=== PATIENT | female | born 1985 | race Caucasian/White ===

== ENCOUNTER 2020-05-01 13:31 | Emergency (ER) | payer OTHER, SELFPAY ==
[2020-05-01 13:40] VITALS: BP 135/92; PULSE 111; RESP 18; TEMP 36.8; O2SAT 97; BMI 34.1
--- NOTE | 2020-05-01 14:05 | ED_ITS ---
HPI - General Adult General: Chief complaint: Needlestick/Injury/Exposure Stated complaint: exposure/wc Time Seen by Provider: 05/01/20 13:55 Source: patient Mode of arrival: ambulatory Limitations: no limitations History of Present Illness: HPI narrative: Patient is a 35-year-old female who presents to ED today for evaluation after a blood exposure while at work. 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 Patient states she immediately irrigated both eyes copiously. She is not having any visual changes or eye pain. 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 Patient has completed her hepatitis B vaccination series. She is up-to-date on tetanus. She does not want to initiate PEP for HIV at this time. Onset (ago): minute(s) Location: eyes Associated symptoms: Reports no associated symptoms Review of Systems Eyes: Denies: change in vision, blurry vision, blind spots, photophobia, eye discomfort, eye discharge, eye redness, increased production of tears, floaters or seeing flashes Physical Exam Const: COMMON NORMALS: no acute distress, patient oriented x3, no limitations and alert Eye: COMMON NORMALS: Equal, round and reactive pupils present, EOMs intact bilaterally, conjunctivae normal and no scleral icterus GENERAL EYE: appearance normal, both eyes and all related structures VISUAL ACUITY: Yes acuity normal VISUAL FITZGERALD: No peripheral vision loss PERIORBITAL: periorbital findings normal EYELID: eyelids normal CONJUNCTIVA: Yes conjunctivae normal SCLERA: sclerae normal CORNEA: Yes corneas normal PUPIL: Yes Equal, round and reactive pupils present Neuro: COMMON NORMALS: patient oriented x3 SENSORIUM/ORIENTATION: Yes alert Course Vital Signs: Vital signs: Vital Signs Temperature 98.2 F 05/01/20 13:40 Pulse Rate 111 H 05/01/20 13:40 Respiratory Rate 18 05/01/20 13:40 Blood Pressure 135/92 05/01/20 13:40 Pulse Oximetry 97 05/01/20 13:40 MDM - General Adult MDM Narrative: Medical decision making narrative: Patient will have employee exposure labs drawn here. She will followup with Worker's Comp as directed. She does not wish to start PEP. 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 Discharge Plan Discharge Patient Disposition: Home, Self-Care Clinical Impression: Exposure to blood Condition: Stable Discharge Orders: Discharge Order (Routine); Ordered 05/01/20 Ordered By: Erica Raines Referrals: Rolando Miller MD [Primary Care Provider] - Patient Instructions: Blood/Body Fluid Exposure - Occupational Activity Restrictions/Additional Instructions: As discussed please follow-up with Worker's Comp as directed. production supervisor off shift should be working on obtaining source patient blood. You should be contacted if any of the source patient's blood comes back abnormal/positive. Coding Level of Care Code ED Marketing Information Analyst for Chg Fwd Exam Expanded Problem Focused
[2020-05-01 14:45] VITALS: RESP 18
[2020-05-01 14:54] LABS: Hepatitis C Virus Antibody Non-Reactive (Nonreactive)
[2020-05-01 14:58] LABS: Hepatitis B Surface AB 5.7 (0-8.5)
[2020-05-01 17:22] LABS: HIV 1 & 2 Antibody Non-Reactive (Non-Reactiv); HIV 1 & 2 Antigen Non-Reactive (Non-Reactiv)
[2020-05-01 22:55] LABS: Hepatitis B Surface Antigen Non-Reactive (Nonreactive)
== END 2020-05-01 14:49 | disposition home or self-care (01) ==
PROVIDERS: Emergency Provider Physician Assistant; PCP Family Medicine
DX: Z77.21 Contact with and (suspected) exposure to potentially hazardous body fluids (principal)
CPT/HCPCS: 12345; 36415; 86706; 86803; 87340; 87806; 99281; 99282

== ENCOUNTER 2021-11-20 13:41 | Outpatient (CLI) | payer OTHER, SELFPAY ==
[2021-11-20 14:28] LABS: Anion Gap 18.2 (5-19); Blood Urea Nitrogen 13 mg/dL (6-20); Carbon Dioxide 23 mmol/L (22-29); Chloride 97 mmol/L (98-107); Glomerular Filtration Rate 138.1 mL/min (90-130); Glucose 187 mg/dL (65-115); Osmolality Calculated 283 mOsm/kg (285-295); Potassium 4.2 mmol/L (3.5-5.1); Sodium 134 mmol/L (136-145)
== END 2021-11-20 13:42 | disposition home or self-care (01) ==
LOC: LAB 13:46
PROVIDERS: Visit Provider Internal Medicine
DX: L98.8 Other specified disorders of the skin and subcutaneous tissue (principal)
CPT/HCPCS: 36415; 80048

== ENCOUNTER 2022-03-28 06:08 | Outpatient (CLI) | payer OTHER, SELFPAY ==
[2022-03-28 07:04] LABS: Alanine Aminotransferase 30 U/L (0-33); Albumin Level 4.3 g/dL (3.5-5.2); Alkaline Phosphatase 53 IU/L (35-105); Aspartate Amino Transferase 23 U/L (0-32); Blood Urea Nitrogen 12 mg/dL (6-20); Calcium 8.6 mg/dL (8.5-10.5); Carbon Dioxide 23 mmol/L (22-29); Chloride 103 mmol/L (98-107); Chol HDL Ratio 2.37 mg/dL (0.0-4.40); Cholesterol 147 mg/dL (0-200); Globulin 2.6 g/dL (1.3-4.6); Glomerular Filtration Rate 111.3 mL/min (90-130); Glucose 190 mg/dL (65-115); HDL Cholesterol 62 mg/dL (60-100); LDL Cholesterol Calculated 48 mg/dL (50-129); LDL HDL Ratio 0.77 RATIO (0.00-3.22); Osmolality Calculated 291 mOsm/kg (285-295); Sodium 138 mmol/L (136-145); Total Bilirubin 0.4 mg/dL (0.15-1.2); Total Protein 6.9 g/dL (6.6-8.7); Triglycerides 186 mg/dL (0-150)
[2022-03-28 07:06] LABS: Estmated Average Glucose 169; Hemoglobin A1C 7.5 % (4.0-6.0)
[2022-03-28 07:08] LABS: Anion Gap 16.2 (5-19); Potassium 4.2 mmol/L (3.5-5.1)
== END 2022-03-28 06:09 | disposition home or self-care (01) ==
PROVIDERS: Visit Provider Internal Medicine
DX: E11.65 Type 2 diabetes mellitus with hyperglycemia (principal)
CPT/HCPCS: 36415; 80053; 80061; 83036

== ENCOUNTER 2022-06-27 06:13 | Outpatient (CLI) | payer OTHER, SELFPAY ==
[2022-06-27 07:36] LABS: Estmated Average Glucose 157; Hemoglobin A1C 7.1 % (4.0-6.0)
== END 2022-06-27 06:14 | disposition home or self-care (01) ==
LOC: LAB 06:18
PROVIDERS: Visit Provider Internal Medicine
DX: E11.65 Type 2 diabetes mellitus with hyperglycemia (principal)
CPT/HCPCS: 36415; 83036

== ENCOUNTER 2022-11-21 06:19 | Outpatient (CLI) | payer OTHER, SELFPAY ==
[2022-11-21 07:23] LABS: Estmated Average Glucose 157; Hemoglobin A1C 7.1 % (4.0-6.0)
== END 2022-11-21 06:20 | disposition home or self-care (01) ==
PROVIDERS: PCP Family Medicine; Visit Provider Internal Medicine
DX: E11.65 Type 2 diabetes mellitus with hyperglycemia (principal); E78.2 Mixed hyperlipidemia
CPT/HCPCS: 36415; 83036

== ENCOUNTER 2022-12-12 06:13 | Outpatient (CLI) | payer OTHER, SELFPAY ==
[2022-12-12 06:49] LABS: Add Urine Microscopic? NO; Charge for UA Resulting for Rev
[2022-12-12 06:55] LABS: Bilirubin Urine Neg (Negative); Blood Urine Neg (Negative); Glucose Urine UA 4+ (Normal); Ketones Urine 1+ (Negative); Leukocyte Esterase Urine Negative (Negative); Nitrate Urine Negative (Negative); Protein Urine Neg (Negative); Urine Appearance Clear (CLEAR); Urine Color Yellow (Yellow); Urobilinogen Urine Neg (Negative); pH Urine 6 (5-7)
== END 2022-12-12 06:14 | disposition home or self-care (01) ==
PROVIDERS: PCP Family Medicine; Visit Provider Internal Medicine
DX: N39.0 Urinary tract infection, site not specified (principal)
CPT/HCPCS: 81003

== ENCOUNTER 2023-05-21 06:20 | Outpatient (CLI) | payer OTHER, SELFPAY ==
[2023-05-21 08:15] LABS: Estmated Average Glucose 237; Hemoglobin A1C 9.9 % (4.0-6.0)
== END 2023-05-21 06:21 | disposition home or self-care (01) ==
PROVIDERS: PCP Family Medicine; Visit Provider Internal Medicine
DX: E11.65 Type 2 diabetes mellitus with hyperglycemia (principal)
CPT/HCPCS: 83036

== ENCOUNTER 2023-08-06 05:59 | Outpatient (CLI) | payer OTHER, SELFPAY ==
[2023-08-06 06:57] LABS: Estmated Average Glucose 214; Hemoglobin A1C 9.1 % (4.0-6.0)
== END 2023-08-06 06:00 | disposition home or self-care (01) ==
LOC: LAB 06:01
PROVIDERS: PCP Family Medicine; Visit Provider Internal Medicine
DX: E11.65 Type 2 diabetes mellitus with hyperglycemia (principal); E66.9 Obesity, unspecified; E28.2 Polycystic ovarian syndrome; E78.2 Mixed hyperlipidemia
CPT/HCPCS: 83036

== ENCOUNTER 2023-11-27 06:01 | Outpatient (CLI) | payer OTHER, SELFPAY ==
[2023-11-27 07:25] LABS: Alanine Aminotransferase 42 U/L (0-33); Albumin Level 4.3 g/dL (3.5-5.2); Alkaline Phosphatase 67 U/L (35-105); Anion Gap 16.2 (5-19); Aspartate Amino Transferase 33 U/L (0-32); Blood Urea Nitrogen 17 mg/dL (6-20); Calcium 9.5 mg/dL (8.5-10.5); Carbon Dioxide 23 mmol/L (22-29); Chloride 102 mmol/L (98-107); Chol HDL Ratio 3.27 mg/dL (0.0-4.40); Cholesterol 196 mg/dL (0-200); Globulin 2.7 g/dL (1.3-4.6); Glomerular Filtration Rate 136.6 mL/min (90-130); Glucose 171 mg/dL (65-115); HDL Cholesterol 60 mg/dL (60-100); LDL Cholesterol Calculated 94 mg/dL (50-129); LDL HDL Ratio 1.57 RATIO (0.00-3.22); Osmolality Calculated 290 mOsm/kg (285-295); Potassium 4.2 mmol/L (3.5-5.1); Sodium 137 mmol/L (136-145); Total Bilirubin 0.2 mg/dL (0.15-1.2); Triglycerides 211 mg/dL (0-150)
[2023-11-27 07:27] LABS: Estmated Average Glucose 163; Hemoglobin A1C 7.3 % (4.0-6.0)
[2023-11-27 08:23] LABS: Creatinine Urine, Random 65 mg/dL (28-217); Microalbum Creatinine Ratio Ur 15 mg/dL (0-20); Microalbumin Random Urine 1 ug/dL (0-20)
== END 2023-11-27 06:02 | disposition home or self-care (01) ==
LOC: LAB 06:01
PROVIDERS: PCP Family Medicine; Visit Provider Internal Medicine
DX: E11.65 Type 2 diabetes mellitus with hyperglycemia (principal)
CPT/HCPCS: 36415; 80053; 80061; 82044; 83036

== ENCOUNTER → 2024-01-28 07:57 | Outpatient (BNVA) | payer OTHER, SELFPAY | PROVIDERS: PCP Family Medicine; Visit Provider Nurse Practitioner Women's Health | DX: Z34.90 Encounter for supervision of normal pregnancy, unspecified, unspecified trimester (principal) | CPT/HCPCS: 81025; 86850; 86900 ==

== ENCOUNTER → 2024-02-04 13:16 | Outpatient (BNVA) | payer OTHER, SELFPAY | PROVIDERS: PCP Family Medicine; Visit Provider Nurse Practitioner Women's Health | DX: Z34.90 Encounter for supervision of normal pregnancy, unspecified, unspecified trimester (principal) | CPT/HCPCS: 76801; 80307; 84315; 85025; 86592; 86762; 86803; 86850; 86900; 87086; 87340; 87491; 87591; 87806 ==

== ENCOUNTER → 2024-02-09 07:52 | Outpatient (BNVA) | payer OTHER, SELFPAY | PROVIDERS: PCP Family Medicine; Visit Provider Obstetrics & Gynecology | DX: O09.899 Supervision of other high risk pregnancies, unspecified trimester (principal); O24.319 Unspecified pre-existing diabetes mellitus in pregnancy, unspecified trimester; Z67.91 Unspecified blood type, Rh negative; O34.219 Maternal care for unspecified type scar from previous cesarean delivery; O09.529 Supervision of elderly multigravida, unspecified trimester; E11.65 Type 2 diabetes mellitus with hyperglycemia; E66.9 Obesity, unspecified; F41.9 Anxiety disorder, unspecified; F32.A Depression, unspecified; Z30.09 Encounter for other general counseling and advice on contraception; Z3A.00 Weeks of gestation of pregnancy not specified | CPT/HCPCS: 83036; 84315 ==

== ENCOUNTER → 2024-02-20 08:36 | Outpatient (BNVA) | payer OTHER, SELFPAY | PROVIDERS: PCP Family Medicine; Visit Provider Obstetrics & Gynecology | DX: O09.899 Supervision of other high risk pregnancies, unspecified trimester (principal); Z3A.00 Weeks of gestation of pregnancy not specified | CPT/HCPCS: 84315; 87491; 87591 ==

== ENCOUNTER → 2024-05-10 12:19 | Outpatient (BNVA) | payer OTHER, SELFPAY | PROVIDERS: PCP Family Medicine; Visit Provider Nurse Practitioner Women's Health | DX: O36.5990 Maternal care for other known or suspected poor fetal growth, unspecified trimester, not applicable or unspecified (principal); Z3A.24 24 weeks gestation of pregnancy | CPT/HCPCS: 76805 ==

== ENCOUNTER → 2024-05-20 08:01 | Outpatient (BNVA) | payer OTHER, SELFPAY | PROVIDERS: PCP Family Medicine; Visit Provider Obstetrics & Gynecology | DX: O36.5990 Maternal care for other known or suspected poor fetal growth, unspecified trimester, not applicable or unspecified (principal); Z3A.24 24 weeks gestation of pregnancy | CPT/HCPCS: 76816; 76820 ==

== ENCOUNTER → 2024-05-27 09:21 | Outpatient (BNVA) | payer OTHER, SELFPAY | PROVIDERS: PCP Family Medicine; Visit Provider Obstetrics & Gynecology | DX: O36.5920 Maternal care for other known or suspected poor fetal growth, second trimester, not applicable or unspecified (principal); Z3A.27 27 weeks gestation of pregnancy | CPT/HCPCS: 76815; 76820; 84315 ==

== ENCOUNTER → 2024-06-17 12:33 | Outpatient (BNVA) | payer OTHER, SELFPAY | PROVIDERS: PCP Family Medicine; Visit Provider Obstetrics & Gynecology | DX: Z36.4 Encounter for antenatal screening for fetal growth retardation (principal); Z3A.29 29 weeks gestation of pregnancy | CPT/HCPCS: 76816; 76820 ==

== ENCOUNTER → 2024-06-24 12:33 | Outpatient (BNVA) | payer OTHER, SELFPAY | PROVIDERS: PCP Family Medicine; Visit Provider Obstetrics & Gynecology | DX: O36.5930 Maternal care for other known or suspected poor fetal growth, third trimester, not applicable or unspecified (principal); Z3A.31 31 weeks gestation of pregnancy | CPT/HCPCS: 76815; 76820; 84315 ==

== ENCOUNTER → 2024-07-01 12:23 | Outpatient (BNVA) | payer OTHER, SELFPAY | PROVIDERS: PCP Family Medicine; Visit Provider Obstetrics & Gynecology | DX: O36.5930 Maternal care for other known or suspected poor fetal growth, third trimester, not applicable or unspecified (principal); Z3A.31 31 weeks gestation of pregnancy | CPT/HCPCS: 76815; 76819; 76820 ==

== ENCOUNTER → 2024-07-08 12:46 | Outpatient (BNVA) | payer OTHER, SELFPAY | PROVIDERS: PCP Family Medicine; Visit Provider Obstetrics & Gynecology | DX: O36.5930 Maternal care for other known or suspected poor fetal growth, third trimester, not applicable or unspecified (principal); Z3A.33 33 weeks gestation of pregnancy | CPT/HCPCS: 76815; 76820; 84315; 86850 ==

== ENCOUNTER 2024-07-13 12:48 | Outpatient (CLI) | payer OTHER, SELFPAY ==
[2024-07-13 13:04] VITALS: BP 138/79; PULSE 108
[2024-07-13 13:37] VITALS: BMI 37.8
== END 2024-07-13 14:00 ==
LOC: OPOB 12:49 → OBGYN 12:54
PROVIDERS: PCP Family Medicine; Visit Provider Obstetrics & Gynecology
DX: O24.419 Gestational diabetes mellitus in pregnancy, unspecified control (principal); Z3A.00 Weeks of gestation of pregnancy not specified
CPT/HCPCS: 59025

== ENCOUNTER → 2024-07-15 12:25 | Outpatient (BNVA) | payer OTHER, SELFPAY | PROVIDERS: PCP Family Medicine; Visit Provider Obstetrics & Gynecology | DX: Z36.4 Encounter for antenatal screening for fetal growth retardation (principal); Z3A.33 33 weeks gestation of pregnancy | CPT/HCPCS: 76815; 76820 ==

== ENCOUNTER 2024-07-21 12:47 | Outpatient (CLI) | payer OTHER, SELFPAY ==
[2024-07-21 12:45] VITALS: BMI 37.4
[2024-07-21 13:19] VITALS: BP 142/79; PULSE 111
[2024-07-21 13:20] VITALS: BP 142/79; PULSE 111
== END 2024-07-21 13:20 ==
LOC: OPOB 12:48 → OBGYN 12:48
PROVIDERS: PCP Family Medicine; Visit Provider Obstetrics & Gynecology
DX: O24.419 Gestational diabetes mellitus in pregnancy, unspecified control (principal); Z3A.00 Weeks of gestation of pregnancy not specified
CPT/HCPCS: 59025; 99211

== ENCOUNTER → 2024-07-22 12:54 | Outpatient (BNVA) | payer OTHER, SELFPAY | PROVIDERS: PCP Family Medicine; Visit Provider Nurse Practitioner Women's Health | DX: O36.5930 Maternal care for other known or suspected poor fetal growth, third trimester, not applicable or unspecified (principal); Z3A.35 35 weeks gestation of pregnancy | CPT/HCPCS: 76815; 76820 ==

== ENCOUNTER 2024-07-22 13:57 | Outpatient (CLI) | payer OTHER, SELFPAY ==
[2024-07-22 14:04] VITALS: BMI 37.3
[2024-07-22 14:14] VITALS: BP 136/84; PULSE 113
[2024-07-22 14:30] VITALS: BP 134/80; PULSE 118
[2024-07-22 14:55] VITALS: BP 133/84; PULSE 136
[2024-07-22 15:15] VITALS: BP 137/86; PULSE 111
[2024-07-22 15:35] VITALS: BP 124/81; PULSE 116
[2024-07-22 15:55] VITALS: BP 136/82; PULSE 106
[2024-07-22 19:05] LABS: Glucose Point of Care 64 mg/dL (70-110)
== END 2024-07-22 16:07 | disposition home or self-care (01) ==
LOC: OPOB 13:57 → OBGYN 13:58
PROVIDERS: PCP Family Medicine; Visit Provider Obstetrics & Gynecology
DX: O16.9 Unspecified maternal hypertension, unspecified trimester (principal); Z3A.00 Weeks of gestation of pregnancy not specified; R11.0 Nausea
CPT/HCPCS: 36416; 59025; 82962; 84315; 99211

== ENCOUNTER 2024-07-28 13:27 | Outpatient (CLI) | payer OTHER, SELFPAY ==
[2024-07-28 13:34] VITALS: BMI 38.1
[2024-07-28 13:38] VITALS: BP 136/82; PULSE 97
[2024-07-28 13:53] VITALS: BP 126/78; PULSE 95
[2024-07-28 14:01] VITALS: BP 126/78; PULSE 95
== END 2024-07-28 14:02 | disposition home or self-care (01) ==
LOC: OPOB 13:32 → OBGYN 13:33
PROVIDERS: PCP Family Medicine; Visit Provider Obstetrics & Gynecology
DX: O24.419 Gestational diabetes mellitus in pregnancy, unspecified control (principal); Z3A.00 Weeks of gestation of pregnancy not specified
CPT/HCPCS: 59025

== ENCOUNTER → 2024-07-29 13:00 | Outpatient (BNVA) | payer OTHER, SELFPAY | PROVIDERS: PCP Family Medicine; Visit Provider Obstetrics & Gynecology | DX: O36.5930 Maternal care for other known or suspected poor fetal growth, third trimester, not applicable or unspecified (principal); Z3A.35 35 weeks gestation of pregnancy | CPT/HCPCS: 76815; 76819 ==

== ENCOUNTER → 2024-08-05 12:38 | Outpatient (BNVA) | payer OTHER, SELFPAY | PROVIDERS: PCP Family Medicine; Visit Provider Obstetrics & Gynecology | DX: Z34.90 Encounter for supervision of normal pregnancy, unspecified, unspecified trimester (principal); Z98.890 Other specified postprocedural states; O36.5930 Maternal care for other known or suspected poor fetal growth, third trimester, not applicable or unspecified; Z3A.00 Weeks of gestation of pregnancy not specified | CPT/HCPCS: 76819; 76820; 84315; 87081 ==

== ENCOUNTER → 2024-08-12 12:37 | Outpatient (BNVA) | payer OTHER, SELFPAY | PROVIDERS: PCP Family Medicine; Visit Provider Obstetrics & Gynecology | DX: O36.5930 Maternal care for other known or suspected poor fetal growth, third trimester, not applicable or unspecified (principal); Z3A.36 36 weeks gestation of pregnancy | CPT/HCPCS: 76815; 76820 ==

== ENCOUNTER 2024-08-13 14:47 | Outpatient (CLI) | payer OTHER, SELFPAY ==
[2024-08-13 15:06] VITALS: BP 139/81; PULSE 107
[2024-08-13 15:13] VITALS: RESP 18; BMI 38.6
[2024-08-13 15:18] VITALS: BP 138/79; PULSE 96
[2024-08-13 15:33] VITALS: BP 127/74; PULSE 93
[2024-08-13 16:36] VITALS: BP 131/85; PULSE 95
== END 2024-08-13 15:48 | disposition home or self-care (01) ==
LOC: OPOB 14:51 → OBGYN 14:52
PROVIDERS: PCP Family Medicine; Visit Provider Obstetrics & Gynecology
DX: O24.419 Gestational diabetes mellitus in pregnancy, unspecified control (principal); Z3A.00 Weeks of gestation of pregnancy not specified; O09.519 Supervision of elderly primigravida, unspecified trimester
CPT/HCPCS: 59025

== ENCOUNTER 2024-08-17 05:06 | Inpatient (IN) | payer OTHER, SELFPAY ==
[2024-08-17] VITALS (28 sets, daily range): BP systolic 120–150; BP diastolic 60–95; PULSE 74–112; RESP 16–18; TEMP 36.3–36.9; O2SAT 99–100; BMI 37.9
[2024-08-17] MEDS: lactated ringers 1,000 ML 999 ML IV (05:50)
[2024-08-17 06:05] LABS: Basophils # 0.1 10^3/uL (0.0-0.1); Basophils % 0.5 %; Eosinophils # 0.2 10^3/uL (0.0-0.8); Hematocrit 40.5 % (36-47); Lymphocytes # 2.5 10^3/uL (0.8-4.8); Lymphocytes % 20.4 %; Mean Corpuscular HGB Conc 32.6 g/dL (30-55); Mean Corpuscular Hemoglobin 28.1 pg (27-33); Mean Corpuscular Volume 86.4 fl (85-98); Mean Platelet Volume 10.6 fL (7.4-10.4); Monocytes # 1.2 10^3/uL (0.2-0.9); Monocytes % 9.7 %; Neutrophils # 8.09 10^3/uL (1.8-7.7); Neutrophils % 66.5 %; Nucleated Red Blood Cells % 0 %; Platelet Count 250 10^3/cmm (157-399); Red Blood Count 4.69 10^6/uL (3.85-5.65); White Blood Count 12.16 10^3/uL (3.29-11.43)
[2024-08-17] MEDS: metoclopramide 5 mg/mL SDV 2 mL 10 MG IVP (06:51)
[2024-08-17] MEDS: famotidine 20 mg/2 mL INJ IVP (06:53)
[2024-08-17] MEDS: citric acid-sodium citrate 30 mL UDC PO (06:55)
--- NOTE | 2024-08-17 08:20 | P.ANESUD_ITS ---
Pre-Anesthetic Update Pre-Anesthetic Assessment: Date of Surgery/Procedure: 08/17/24 Preop Heide gnosis: Prior Proposed Procedure: Operation Date: 08/17/24 07:00 Proposed Procedures p Section Repeat With Tubal 06576, 59855, 43183, E11.65, Z30.2(Not Applicable) - Dain Tran MD Any changes to Pre-Anesthetic Assessment?: No Labs Last 48hrs: Short CBC 08/17/24 Range/Units 05:36 WBC 12.16 H (3.29-11.43) 10^ 3/uL Hgb 13.20 (11.27-16.99) g/ dL Hct 40.5 (36-47) % MCV 86.4 (85-98) fl Plt Count 250 (157-399) 10^3/c mm Neut % (Auto) 66.5 % Neut # (Auto) 8.09 H (1.8-7.7) 10^3/u L Blood Bank 08/17/24 05:36 Blood Type A Negative Rho(D) Type Rh negative Antibody Screen Positive Vitals: Pulse Rate 99 08/17/24 06:49 Respiratory Rate 17 08/17/24 05:43 Respiratory Effort Spontaneous, Non- Labored 08/17/24 05:19 Respiratory Depth Normal 08/17/24 05:19 Respiratory Patter n Normal 08/17/24 05:19 Blood Pressure 141/89 08/17/24 06:49 Oxygen Delivery Me thod Room Air 08/17/24 05:19 Exam: Pre-Anes Outpt Exam: alert, oriented x 3, clear to auscultation bilaterally and regular rate & rhythm Cardiac Studies: No Data to Display
[2024-08-17] MEDS: BUPIVACAINE LIPOSOME/PF 266 MG, BUPivacaine 0.25% 30 ML in sodium chloride 0.9% 50 ML 100 MG INFILTRATI (08:45)
--- NOTE | 2024-08-17 08:55 | W.PM.OPSUD ---
Surgery/Procedure H&P Update DATE OF PROCEDURE: August 17, 2024 DATE H&P PERFORMED: 08/05/24 H&P UPDATE INFORMATION: I have reviewed H&P completed within last 30 days, I have examined patient prior to procedure and No changes to prior documentation PREOP DIAGNOSIS: Prior PLANNED PROCEDURE: Operation Date: 08/17/24 07:00 Proposed Procedures p Section Repeat With Tubal 99485, 09390, 25347, E11.65, Z30.2(Not Applicable) - Dain Tran MD
--- NOTE | 2024-08-17 08:56 | PM.OP ---
Operative Report Date of procedure: August 17, 2024 Pre-op diagnosis: Term Previous delivery Pregestational diabetes Abnormal NIPT screening Desire permanent sterilization Post-op diagnosis: same Post-op findings: Multiple adhesions Uterus Procedure done: Repeat low-transverse delivery Lysis of adhesions Bilateral salpingectomy Specimens removed/disposition: Left the right fallopian tube Surgeon: Dain Tran MD Estimated blood loss (mL): 800 IV fluids (mL): 1,200 Urine output (mL): 200 Procedure: After assuring informed consent, the patient was taken to the operating room and anesthesia was initiated. She was placed in the dorsal supine position with a left lateral tilt. The abdomen was prepped and draped in the usual sterile manner. A time-out procedure was performed. Preop antibiotics was administered. A Pfannenstiel skin incision was made with the scalpel and carried through to the underlying layer of fascia with the Bovie. The fascia was nicked in the midline and the incision extended laterally with the Perez scissors. The superior aspect of the fascial incision was then grasped with Abby clamps and elevated and the underlying rectus muscle dissected off bluntly and sharp with perez scissors dense adhesions. Attention was then turned to the inferior aspect of the incision which, in similar fashion, was grasped and tented up with Abby clamps and the rectus muscle dissected bluntly. The rectus muscles were then in the midline and the peritoneum identified, tented up and entered sharply with Metzenbaum scissors. The peritoneal incision was then extended superiorly and inferiorly with good visualization of the bladder. The Tono O retractor was then inserted and the vesicouterine peritoneum identified, grasped with pickups and entered sharply with Metzenbaum scissors. This incision was then extended laterally and the bladder flap created digitally. The bladder blade was then reinserted and the uterus incised in a low transverse fashion with the scalpel. The uterine incision was then extended with the bandage scissors. The infant was then delivered in the cephalic presentation atraumatically vacuum assisted. The nose and the mouth were suctioned with bulb and the cord clamped and cut. The cord was normal and had three vessels. Amniotic fluid was clear. The placenta was then removed manually and the uterus exteriorized and cleared of all clots and debris. The uterine incision was repaired with 0 Vicryl in a running-locked fashion. A second layer of the same suture was used to obtain excellent hemostasis. The gutters were cleared of all clots. Attention was then directed to the right side. The fallopian tube and mesosalpinx were grasped and the underlying mesosalpinx was cauterized and cut using the fine Ligasure device. Serial cauterization and cutting was used to separate the fallopian tube from the underlying mesosalpinx until it could be amputated cutting it approximated 2 cm from the cornua. Attention was then turned to the contralateral fallopian tube, which was removed in similar fashion. Both specimens were removed and sent to pathology. The uterus was then returned to the abdomen. The rectus muscles were approximated with 3-0 chromic gut. The ON-Q pain management system placed. The fascia was reapproximated with 0 Vicryl in an interrupted running fashion. The skin was closed with Insorb?s subcuticular absorbable [place]. The patient tolerated the procedure well. The sponge, lap and needle counts were correct times three.
--- NOTE | 2024-08-17 09:20 | ANE.PACU2 ---
Inpatient post-anesthesia follow up: Airway intact: Yes Vital signs: Temperature 97.4 F Pulse Rate 85 Respiratory Rate 16 Blood Pressure 125/67 Pulse Oximetry 100 Oxygen Delivery Me thod Room Air Oxygen Flow Rate Fraction of Inspir ed Oxygen Hydration adequate: Yes Nausea and vomiting: No Pain level: 1 Mental status: Baseline
--- NOTE | 2024-08-17 12:31 | PC.NURSE ---
1220 PATIENT UP AND TO WHEELCHAIR AND INTO NURSERY TO SEE HER BABY. SHE DID GREAT GETTING UP.
--- NOTE | 2024-08-17 13:33 | PC.NURSE ---
MOM BACK INTO ROOM AND BABY FOLLOWING. BABY DID GREAT WITH SKIN TO SKIN.
[2024-08-17] MEDS: ketorolac 30 mg/mL INJ IVP ×2 (16:34→20:38)
--- NOTE | 2024-08-17 19:01 | PC.NURSE ---
183 PATIENT STILL HAD VISTORS BUT TOLD HER THAT I REALLY NEED HER TO GET UP AND WALK. SO VISTORS LEFT AND WE GOT UP AND CLEANED UP AND SHE DID 3 LAPS IN [place]VAREZ AND THIS SOFTWARE RELEASE MANAGER CHANGED HER BED WHILE SHE WAS UP. SHE TOLERATED BEING UP WELL. TOLD HER THAT WE COULD TAKE SANTOS OUT AT ANY TIME BUT FOR SURE IN AM. TOLD HER ALSO THAT SHE WOULD NEED RHOGAM AND THAT WE WOULD DRAW HER H&H AROUND 8 THIS EVENING.
[2024-08-17] MEDS: docusate sodium 100 mg Capsule PO (20:40)
[2024-08-17 20:54] LABS: Hematocrit 33.7 % (36-47); Mean Corpuscular HGB Conc 32.6 g/dL (30-55); Mean Corpuscular Hemoglobin 28.8 pg (27-33); Mean Corpuscular Volume 88.2 fl (85-98); Mean Platelet Volume 10.4 fL (7.4-10.4); Platelet Count 214 10^3/cmm (157-399); Red Blood Count 3.82 10^6/uL (3.85-5.65); Red Cell Distribution Width 14.1 % (12.1-15.1); White Blood Count 14.39 10^3/uL (3.29-11.43)
[2024-08-18] VITALS (7 sets, daily range): BP systolic 131–145; BP diastolic 73–81; PULSE 90–98; RESP 16; TEMP 36.2–36.9; O2SAT 98
[2024-08-18] MEDS: ketorolac 30 mg/mL INJ IVP (02:41)
[2024-08-18] MEDS: ibuprofen 800 mg tablet PO ×3 (10:21→20:37)
[2024-08-18] MEDS: docusate sodium 100 mg Capsule PO ×2 (10:21→18:44)
[2024-08-18] MEDS: PRENATAL VIT NO.130/IRON/FOLIC 1 EACH TABLET PO (10:22)
--- NOTE | 2024-08-18 14:11 | P.PN_ITS ---
Subjective 2 Subjective: Mrs. Man 39-year-old female status post repeat low-transverse delivery and bilateral salpingectomy postoperative day 1. Refers feeling fine no pain Vitals/I&O/Wt Last Vital Signs Temp 97.3 F L 08/18/24 12:09 Pulse 96 08/18/24 12:09 Resp 16 08/17/24 20:46 BP 145/74 08/18/24 12:09 Pulse Ox 98 08/18/24 10:39 O2 Del Method Room Air 08/17/24 09:20 08/17/24 08/18/24 08/18/24 22:59 06:59 14:59 Intake Total 600 / 1800 1101 / 1101 Output Total 1300 / 2500 350 / 2850 Balance -700 / -700 -350 / -1050 1101 / 1101 Weight last 48 hrs Weight 103.419 kg Physical Exam 2 Narrative: GA; alert and oriented x 3 HEENT: normal Breasts: engorged Nipples - skin intact Lungs; clear to auscultation Heart: regular rhythm, no murmurs. Abd: Appropriately tender. BS+. Uterine fundus below umbilicus. No Fundal Tenderness, minimal tenderness, incision clean and dry, no redness, pain or edema. Perineum: normal lochia. Extremities: no edema, no cyanosis, no tenderness. Urinary Catheter Management: Fitzgerald: Cath Placed During This Visit: yes, but has since been removed by the nurse Reason for Continuing Indwelling Catheter: Decision to DC Catheter Urinary Catheter Date of Insertion: 08/17/24 Urinary Catheter Time of Insertion: 07:20 Date Urinary Catheter Removed: 08/18/24 Time Urinary Catheter Discontinued: 02:41 Data 08/17/24 20:46 A&P Assessment and plan (1) delivery due to maternal disorder, delivered, curr hospitaliz: Mrs. Man 39-year-old female status post repeat low-transverse delivery and bilateral salpingectomy postoperative day 1. She is afebrile hemodynamically stable. Tolerating diet well. Overnight observation was uneventful. (2) Previous delivery affecting : Continue postop/ observation. (3) Abnormal test: Attestations 2 Medical Necessity Statement*: In my professional opinion per admitting diagnosis Coding Level of Care Code Acute Code for Chg Fwd Diagnoses delivery due to maternal disorder, delivered, [facility] O99.892 Previous delivery affecting O34.219 Abnormal test O28.9
[2024-08-19 04:07] VITALS: BP 145/76; PULSE 96
[2024-08-19 04:16] VITALS: RESP 16; TEMP 37.1
[2024-08-19] MEDS: ibuprofen 800 mg tablet PO (08:58)
[2024-08-19] MEDS: PRENATAL VIT NO.130/IRON/FOLIC 1 EACH TABLET PO (08:58)
[2024-08-19] MEDS: docusate sodium 100 mg Capsule PO (08:58)
--- NOTE | 2024-08-19 12:52 | P.DS_ITS ---
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 Man 39-year-old female G2, P2 admitted for planned scheduled for repeat low-transverse delivery at term and bilateral salpingectomy. complicated by pregestational diabetes, and abnormal testing. Repeat low-transverse and bilateral salpingectomy were performed without complications. Postop observation has been uneventful. She is afebrile. Tolerating diet well. Ambulating without difficulty. She was counseled regarding pelvic rest for 6 weeks (no sex, no tampons, no vaginal douches). Return to the emergency room if any fever, increased bleeding or pain. Information Peripartum Data: Infant Delivery Method: Physical Exam Narrative: GA; alert and oriented x 3 HEENT: normal Breasts: engorged Nipples - skin intact Lungs; clear to auscultation Heart: regular rhythm, no murmurs. Abd: Appropriately tender. BS+. Uterine fundus below umbilicus. No Fundal Tenderness, minimal tenderness, incision clean and dry, no redness, pain or edema. Perineum: normal lochia. Extremities: no edema, no cyanosis, no tenderness. Urinary Catheter Management: Fitzgerald: Cath Placed During This Visit: yes, but has since been removed by the nurse Reason for Continuing Indwelling Catheter: Decision to DC Catheter Urinary Catheter Date of Insertion: 08/17/24 Urinary Catheter Time of Insertion: 07:20 Date Urinary Catheter Removed: 08/18/24 Time Urinary Catheter Discontinued: 02:41 History History History 2 Term 1 0 Miscarriages/Ectopic 0 Living Children 1 Discharge Data Studies Completed and Pending Pending at discharge Category Date Time Status Pathology: Surgical [PTH] Routine Pth 08/17/24 10:11 Received Laboratory Results WBC 14.39 10^3/uL (3.29-11.43) H 08/17/24 20:46 RBC 3.82 10^6/uL (3.85-5.65) L 08/17/24 20:46 Hgb 11.00 g/dL (11.27-16.99) L 08/17/24 20:46 Hct 33.7 % (36-47) L 08/17/24 20:46 MCV 88.2 fl (85-98) 08/17/24 20:46 MCH 28.8 pg (27-33) 08/17/24 20:46 MCHC 32.6 g/dL (30-55) 08/17/24 20:46 RDW 14.1 % (12.1-15.1) 08/17/24 20:46 Plt Count 214 10^3/cmm (157-399) 08/17/24 20:46 MPV 10.4 fL (7.4-10.4) 08/17/24 20:46 Neut % (Auto) 66.5 % 08/17/24 05:36 Lymph % (Auto) 20.4 % 08/17/24 05:36 Wright % (Auto) 9.7 % 08/17/24 05:36 Eos % (Auto) 2.0 % 08/17/24 05:36 Baso % (Auto) 0.5 % 08/17/24 05:36 Neut # (Auto) 8.09 10^3/uL (1.8-7.7) H 08/17/24 05:36 Lymph # (Auto) 2.5 10^3/uL (0.8-4.8) 08/17/24 05:36 Wright # (Auto) 1.2 10^3/uL (0.2-0.9) H 08/17/24 05:36 Eos # (Auto) 0.2 10^3/uL (0.0-0.8) 08/17/24 05:36 Baso # (Auto) 0.1 10^3/uL (0.0-0.1) 08/17/24 05:36 Nucleated RBC % (auto) 0 % 08/17/24 05:36 Nucleated RBCs # 0.0 /100WBC 08/17/24 05:36 Blood Type A Negative 08/17/24 05:36 Rho(D) Type Rh negative 08/17/24 05:36 Antibody Screen Positive 08/17/24 05:36 Antibody Identification Anti-D 08/17/24 05:36 Screen Negative (Negative) 08/17/24 20:46 Vitals Last Vital Signs Temp 98.7 F 08/19/24 04:16 Pulse 96 08/19/24 04:07 Resp 16 08/19/24 04:16 BP 145/76 08/19/24 04:07 Pulse Ox 98 08/18/24 10:39 O2 Del Method Room Air 08/18/24 20:39 Results Labs OB ([facility]): Obstetrics US 08/12/24 Obstetrics US/Biophysical Profile Blood Type A Negative 08/17/24 Antibody Screen Positive 08/17/24 Hct 33.7 % (36-47) L 08/17/24 Hgb 11.00 g/dL (11.27-16.99) L 08/17/24 Rho(D) Type Rh negative 08/17/24 Plt Count 214 10^3/cmm (157-399) 08/17/24 Hep Bs Antigen Non-reactive (Nonreactive) 02/04/24 Hepatitis C Antibody Non-reactive (Nonreactive) 02/04/24 Rubella IgG Antibody 62.9 IU/mL (0.0-10.0) H 02/04/24 RPR Nonreactive (Nonreactive) 02/04/24 HIV 1&2 Ab & HIV 1 Ag Non-reactive (Non-Reactiv) 02/04/24 C.trachomatis RNA (TMA) Not detected (NOT DETECTED) N.gonorrhoeae RNA (TMA) Not detected (NOT DETECTED) T. vaginalis Amp RNA Not detected (NOT DETECTED) 02/20/24 Chlamydia/GC Comment See note 02/20/24 Cystic Fibrosis Screen Neg 14 of 14 02/04/24 Hemoglobin A1c 6.6 % (4.0-6.0) H 02/09/24 HCG, Qual Positive (Negative) H 01/28/24 Urine Opiates Screen Negative ng/mL (Negative) 02/04/24 Ur Barbiturates Screen Negative ng/mL (Negative) 02/04/24 Ur Phencyclidine Scrn Negative ng/mL (Negative) 02/04/24 Ur Amphetamines Screen Negative ng/mL (Negative) 02/04/24 U Benzodiazepines Scrn Negative ng/mL (Negative) 02/04/24 Urine Cocaine Screen Negative ng/mL (Negative) 02/04/24 U Marijuana (THC) Screen Negative ng/mL (Negative) 02/04/24 Micro Urine Specimen 02/04/24 Discharge Plan Discharge Patient Disposition: Home Condition: Stable Prescriptions: New hydrocodone-acetaminophen 5-325 mg tablet 1 tab PO Q4H PRN (Reason: pain) Qty: 30 0RF acetaminophen 325 mg capsule 325 mg PO Q4H PRN (Reason: fever or postoperative pain) Qty: 60 0RF ibuprofen 800 mg tablet 800 mg PO TID PRN (Reason: pain) Qty: 60 0RF Continued M-Lola Plus 27 mg iron- 1 mg tablet 1 tab PO DAILY aspirin [Aspirin Childrens] 81 mg tablet,chewable 81 mg PO DAILY insulin lispro [Humalog KwikPen Insulin] 100 unit/mL insulin pen See Rx Instructions SUBCUT .COMPLEX Qty: 15 2RF Rx Instructions: use as directed Humulin N NPH Insulin KwikPen 100 unit/mL (3 mL) insulin pen See Rx Instructions SUBCUT .COMPLEX Qty: 15 2RF Rx Instructions: use as directed (DME) FreeStyle Jun 3 [place] Misc See Rx Instructions .Route Qty: 1 0RF Rx Instructions: As directed (DME) FreeStyle Jun 3 Sensor Device See Rx Instructions .ROUTE .COMPLEX Qty: 6 4RF Dose Instruction: USE DIRECTED Rx Instructions: USE DIRECTED escitalopram oxalate 5 mg tablet See Rx Instructions .ROUTE .COMPLEX Qty: 60 6RF Dose Instruction: TAKE ONE TABLET BY MOUTH TWICE DAILY Rx Instructions: TAKE ONE TABLET BY MOUTH TWICE DAILY Discharge Orders: Discharge Order (Routine); Ordered 08/19/24 Ordered By: Dain Lechuga Referrals: Dain Lechuga MD [Physician] - 6 Weeks Genevieve Linares APN, WHNP [Nurse Practitioner] - 2 weeks (2 WEEK FOLLOW UP WITH GENEVIEVE LINARES ON August AT 11:45 [address] FOLLOW UP WITH DR. 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
[2024-08-19 13:09] VITALS: BP 141/76; PULSE 98; TEMP 35.8
[2024-08-19 13:20] VITALS: BP 141/76; PULSE 98; RESP 16; TEMP 36.5
== END 2024-08-19 13:45 | disposition home or self-care (01) | DRG 785 ==
PROVIDERS: Admitting Provider Obstetrics & Gynecology; PCP Family Medicine; Visit Provider Obstetrics & Gynecology
PROC: (CPT 59514; principal; 2024-08-17 07:00)
PROC: (CPT 59514; 2024-08-17 07:00)
DX: O24.32 Unspecified pre-existing diabetes mellitus in childbirth (principal); O34.211 Maternal care for low transverse scar from previous cesarean delivery; O99.892 Other specified diseases and conditions complicating childbirth; N85.8 Other specified noninflammatory disorders of uterus; N73.6 Female pelvic peritoneal adhesions (postinfective); Z3A.39 39 weeks gestation of pregnancy; Z79.4 Long term (current) use of insulin; Z30.2 Encounter for sterilization; Z37.0 Single live birth
CPT/HCPCS: 36415; 36430; 51702; 59025; 59409; 80503; 85025; 85027; 85460; 86850; 86870; 86900; 88302; 90384; 90471; 96374; 96376; 99211; C9290; J1200; J1885; J2274; J2371; J2765; J3010; J3490; J7030

== ENCOUNTER 2024-09-17 08:52 | Outpatient (CLI) | payer OTHER, SELFPAY ==
[2024-09-17 09:33] LABS: Creatinine Urine, Random 110 mg/dL (28-217); Microalbum Creatinine Ratio Ur 9 mg/dL (0-20); Microalbumin Random Urine 1 ug/dL (0-20)
[2024-09-17 09:37] LABS: Alanine Aminotransferase 28 U/L (0-33); Albumin Level 4.3 g/dL (3.5-5.2); Alkaline Phosphatase 64 U/L (35-105); Aspartate Amino Transferase 25 U/L (0-32); Blood Urea Nitrogen 10 mg/dL (6-20); Calcium 9.2 mg/dL (8.5-10.5); Carbon Dioxide 25 mmol/L (22-29); Chloride 106 mmol/L (98-107); Chol HDL Ratio 4.25 mg/dL (0.0-4.40); Cholesterol 251 mg/dL (0-200); Globulin 2.5 g/dL (1.3-4.6); Glomerular Filtration Rate 110.2 mL/min (90-130); Glucose 154 mg/dL (65-115); HDL Cholesterol 59 mg/dL (60-100); LDL Cholesterol Calculated 133 mg/dL (50-129); LDL HDL Ratio 2.25 RATIO (0.00-3.22); Osmolality Calculated 294 mOsm/kg (285-295); Sodium 141 mmol/L (136-145); Total Bilirubin 0.4 mg/dL (0.15-1.2); Total Protein 6.8 g/dL (6.6-8.7); Triglycerides 293 mg/dL (0-150)
[2024-09-17 09:38] LABS: Anion Gap 14.3 (5-19); Estmated Average Glucose 131; Hemoglobin A1C 6.2 % (4.0-6.0); Potassium 4.3 mmol/L (3.5-5.1)
== END 2024-09-17 08:53 | disposition home or self-care (01) ==
PROVIDERS: PCP Family Medicine; Visit Provider Internal Medicine
DX: E11.65 Type 2 diabetes mellitus with hyperglycemia (principal); E78.2 Mixed hyperlipidemia
CPT/HCPCS: 36415; 80053; 80061; 82044; 83036

== ENCOUNTER 2025-03-18 06:32 | Outpatient (CLI) | payer OTHER, SELFPAY ==
[2025-03-18 07:38] LABS: Estmated Average Glucose 252; Hemoglobin A1C 10.4 % (4.0-6.0)
[2025-03-18 07:39] LABS: Creatinine Urine, Random 248 mg/dL (28-217); Microalbum Creatinine Ratio Ur 8 mg/dL (0-20); Microalbumin Random Urine 2 ug/dL (0-20)
[2025-03-18 07:41] LABS: Alanine Aminotransferase 26 U/L (0-33); Albumin Level 4.3 g/dL (3.5-5.2); Alkaline Phosphatase 61 U/L (35-105); Aspartate Amino Transferase 24 U/L (0-32); Blood Urea Nitrogen 11 mg/dL (6-20); Calcium 8.6 mg/dL (8.5-10.5); Carbon Dioxide 27 mmol/L (22-29); Chloride 101 mmol/L (98-107); Chol HDL Ratio 2.16 mg/dL (0.0-4.40); Cholesterol 119 mg/dL (0-200); Globulin 2.6 g/dL (1.3-4.6); Glomerular Filtration Rate 135.3 mL/min (90-130); Glucose 252 mg/dL (65-115); HDL Cholesterol 55 mg/dL (60-100); LDL Cholesterol Calculated 33 mg/dL (50-129); Osmolality Calculated 292 mOsm/kg (285-295); Sodium 137 mmol/L (136-145); Total Bilirubin 0.5 mg/dL (0.15-1.2); Total Protein 6.9 g/dL (6.6-8.7); Triglycerides 156 mg/dL (0-150)
[2025-03-18 08:01] LABS: Anion Gap 13.3 (5-19); Potassium 4.3 mmol/L (3.5-5.1)
== END 2025-03-18 06:33 | disposition home or self-care (01) ==
LOC: LAB 06:35
PROVIDERS: PCP Family Medicine; Visit Provider Internal Medicine
DX: E11.65 Type 2 diabetes mellitus with hyperglycemia (principal)
CPT/HCPCS: 80053; 80061; 82044; 83036

== ENCOUNTER 2025-06-20 06:19 | Outpatient (CLI) | payer OTHER, SELFPAY ==
[2025-06-20 08:02] LABS: Estmated Average Glucose 166; Hemoglobin A1C 7.4 % (4.0-6.0)
[2025-06-20 08:06] LABS: Alanine Aminotransferase 21 U/L (0-33); Albumin Level 4.5 g/dL (3.5-5.2); Alkaline Phosphatase 57 U/L (35-105); Anion Gap 15.0 (5-19); Aspartate Amino Transferase 19 U/L (0-32); Blood Urea Nitrogen 13 mg/dL (6-20); Calcium 9.0 mg/dL (8.5-10.5); Carbon Dioxide 26 mmol/L (22-29); Chloride 102 mmol/L (98-107); Cholesterol 142 mg/dL (0-200); Globulin 2.5 g/dL (1.3-4.6); Glucose 131 mg/dL (65-115); HDL Cholesterol 54 mg/dL (60-100); Osmolality Calculated 290 mOsm/kg (285-295); Potassium 4.0 mmol/L (3.5-5.1); Sodium 139 mmol/L (136-145); Total Protein 7.0 g/dL (6.6-8.7); Triglycerides 183 mg/dL (0-150)
[2025-06-20 08:07] LABS: Creatinine Urine, Random 79 mg/dL (28-217); Microalbum Creatinine Ratio Ur 13 mg/dL (0-20)
== END 2025-06-20 06:20 | disposition home or self-care (01) ==
PROVIDERS: PCP Family Medicine; Visit Provider Internal Medicine
DX: E78.2 Mixed hyperlipidemia (principal); E28.2 Polycystic ovarian syndrome; E11.65 Type 2 diabetes mellitus with hyperglycemia
CPT/HCPCS: 36415; 80053; 80061; 82044; 83036